=== PATIENT | female | born 1985 | race Caucasian/White ===

== ENCOUNTER 2016-12-09 06:56 | Emergency (ER) | payer SELFPAY ==
[~2016-12-09] VITALS: Ht 172.7 cm; Wt 133.0 kg
[~2016-12-09 06:56] MED LIST: ZITH250T PO
[2016-12-09 07:00] VITALS: BP 139/91; PULSE 86; RESP 18; TEMP 98; O2SAT 98
[2016-12-09 07:07] VITALS: BP 139/91; PULSE 86; RESP 16; TEMP 98; O2SAT 98
[2016-12-09] MEDS ORDERED: PRED50 PO (07:15)
[2016-12-09] MEDS ORDERED: CLOTR1%T TOPICAL (07:15)
--- NOTE | 2016-12-09 07:15 | PD ---
HPI Chief Complaint: Skin Problem Time Seen by Provider: 07:05 Travel History International Travel<30 days: No Contact w/Intl Traveler<30days: No Traveled to known affect area: No History of Present Illness HPI 31-year-old female here for evaluation of a rash. The patient reports that she joined a gym out 2-1/2 weeks ago. About 2 weeks ago she noticed a rash over her abdomen and lower back. Rash is pruritic. No fevers or chills. She thought that she may have ringworm and started to apply Lotrimin cream. She noticed an initial improvement, however the rash has not resolved. No intraoral lesions. PFSH Past Medical History Medical History: Denies Significant Hx Asthma: Yes Bipolar Disorder: Yes (PER PT A CHILD, PT ON NO MEDS) Depression: No Diabetes: No Diminished Hearing: No Immunizations Current: Yes Seizures: No Tetanus Vaccination: < 5 Years ?: Not : 4 Para: 1 Miscarriage: 1 : 1 Ectopic : Yes (L FALLOPIAN TUBE REMOVED) Tubal Ligation: Yes Past Surgical History Arteriovenous Shunt: No Gynecologic Surgery: Yes (FALLOPIAN TUBE REMOVAL) Oral Surgery: Yes (DENTAL ABSCESS) Social History Alcohol Use: No Tobacco Use: Yes (/2 ppd) Substance Use: No Allergies-Medications (Allergen,Severity, Reaction): Coded Allergies: No Known Allergies (Verified , 01/01/16) Reported Meds & Prescriptions Reported Meds & Active Scripts Active No Active Prescriptions or Reported Medications Review of Systems Except as stated in HPI: all other systems reviewed are Neg Physical Exam Narrative GENERAL: Pleasant, well-developed, well-nourished, no acute distress. SKIN: Warm and dry. Numerous circular/scaly lesions on anterior and posterior mid section about the size of a dime, no warmth or erythema. No petechiae. HEAD: Atraumatic. Normocephalic. EYES: Pupils equal and round. No scleral icterus. No injection or drainage. ENT: Mucous membranes pink and moist. No intraoral lesions. NECK: Trachea midline. No JVD. No nuchal rigidity. CARDIOVASCULAR: Regular rate and rhythm. RESPIRATORY: No accessory muscle use. Clear to auscultation. Breath sounds equal bilaterally. GASTROINTESTINAL: Abdomen soft, non-tender, nondistended. MUSCULOSKELETAL: No obvious deformities. No clubbing. No cyanosis. No edema. NEUROLOGICAL: Awake and alert. No obvious cranial nerve deficits. Motor grossly within normal limits. Normal speech. PSYCHIATRIC: Appropriate mood and affect; insight and judgment normal. Data Data Last Documented VS Vital Signs Date Time Temp Pulse Resp B/P Pulse Ox O2 Delivery O2 Flow Rate FiO2 12/09/16 07:07 98.0 86 16 139/91 98 MDM Medical Decision Making Medical Screen Exam Complete: Yes Emergency Medical Condition: Yes Medical Record Reviewed: Yes Differential Diagnosis Tenia corporis, insect bites, erythema multiforme, cellulitis unlikely, Long Deejay syndrome not likely, Narrative Course This is a 31-year-old female who is here for evaluation of a rash. There are numerous circular/scaly areas on the patient's mid section with raised borders. The appearance of the rash resembles tinea. There are no intraoral lesions. Plan is to start the patient on clotrimazole cream, steroids, and Benadryl. PMD /dermatology follow-up this week. She was informed on when to return to the emergency department. She verbalizes understanding and agreement with plan. Diagnosis Primary Impression: Rash Referrals: Data Processing Supervisor 3 days Primary Care Physician 3 days Patient Instructions: General Instructions Departure Forms: Tests/Procedures Additional Instructions: Take medications as prescribed. Follow-up with a primary care physician or roadmaster this week. Return to the emergency department if worsening symptoms or any other concerns. Scripts Prednisone 50 Mg Tab50 Mg PO DAILY 5 Days Ref 0 Prov:Douglas Brandon MD 12/09/16 Clotrimazole Topical 1% Soln1 Applic TOPICAL BID #30 ML Ref 2 Prov:Douglas Brandon MD 12/09/16 Disposition: 01 DISCHARGE HOME Condition: Stable Douglas Brandon MD Dec 09, 2016 07:15
== END 2016-12-09 07:23 | disposition home or self-care (01) ==
LOC: PHED 06:56
DX: R21 Rash and other nonspecific skin eruption (principal); F17.210 Nicotine dependence, cigarettes, uncomplicated
CPT/HCPCS: 99282

== ENCOUNTER 2018-01-23 16:55 | Emergency (ER) | payer SELFPAY ==
[~2018-01-23 16:55] MED LIST changes: +CLOTR1%T TOPICAL; +PRED50 PO; -ZITH250T PO
[2018-01-23 17:10] VITALS: BP 165/83; PULSE 102; RESP 18; TEMP 98.3; O2SAT 97
--- NOTE | 2018-01-23 17:11 | PD ---
HPI Chief Complaint: Chest Pain Time Seen by Provider: 17:00 Travel History International Travel<30 days: No Contact w/Intl Traveler<30days: No Traveled to known affect area: No History of Present Illness HPI 32-year-old female complains of chest pain. Patient states that the chest pain started a week ago. Patient states that the chest pain has been persistent since then. Patient states of chest pain is not associated with exertion. Patient denies any coughing and congestion fever chills. Patient states that the chest pains his pressure pain across the chest with radiation to left arm. Patient states that she has nausea but no vomiting diarrhea. Patient denies history of CAD. Patient states that she was told that she had elevated blood pressure in the past however not on medication. Patient denies history of diabetes or hyperlipidemia. Patient states that she feel numbness of the feet and blurred vision intermittently for the past week. Patient states that she was having tachycardia for the past week or so. Patient has history of anxiety in the past. PFSH Past Medical History Asthma: Yes Bipolar Disorder: Yes (PER PT A CHILD, PT ON NO MEDS) Depression: No Diabetes: No Diminished Hearing: No Immunizations Current: Yes Seizures: No : 4 Para: 1 Miscarriage: 1 : 1 Ectopic : Yes (L FALLOPIAN TUBE REMOVED) Tubal Ligation: Yes Past Surgical History Arteriovenous Shunt: No Gynecologic Surgery: Yes (FALLOPIAN TUBE REMOVAL) Oral Surgery: Yes (DENTAL ABSCESS) Social History Alcohol Use: No Tobacco Use: Yes (/2 ppd) Substance Use: No Allergies-Medications (Allergen,Severity, Reaction): Coded Allergies: No Known Allergies (Verified , 01/01/16) Reported Meds & Prescriptions Reported Meds & Active Scripts Active Review of Systems General / Constitutional: No: Fever Eyes: No: Visual changes HENT: No: Headaches Cardiovascular: Positive: Chest Pain or Discomfort, Tachycardia Respiratory: No: Shortness of Breath Gastrointestinal: No: Abdominal Pain Genitourinary: No: Dysuria Musculoskeletal: No: Pain Skin: No Rash Neurologic: No: Weakness Psychiatric: No: Depression Endocrine: No: Polydipsia Hematologic/Lymphatic: No: Easy Bruising Physical Exam Narrative GENERAL: Well-nourished, well-developed patient. SKIN: Focused skin assessment warm/dry. HEAD: Normocephalic. EYES: No scleral icterus. No injection or drainage. NECK: Supple, trachea midline. No JVD or lymphadenopathy. CARDIOVASCULAR: Regular rate and rhythm without murmurs, gallops, or rubs. RESPIRATORY: Breath sounds equal bilaterally. No accessory muscle use. GASTROINTESTINAL: Abdomen soft, non-tender, nondistended. MUSCULOSKELETAL: No cyanosis, or edema. BACK: Nontender without obvious deformity. No CVA tenderness. Neurologic exam normal. Data Data Last Documented VS Vital Signs Date Time Temp Pulse Resp B/P (MAP) Pulse Ox O2 Delivery O2 Flow Rate FiO2 01/23/18 17:25 98 Room Air 01/23/18 17:10 98.3 102 18 165/83 (110) Orders Orders Electrocardiogram (01/23/18 17:06) Complete Blood Count With Diff (01/23/18 17:) Comprehensive Metabolic Panel (01/23/18 17:06) Creatine Kinase (Cpk) (01/23/18 17:06) Troponin I (01/23/18 17:06) Prothrombin Time / Inr (Pt) (01/23/18 17:) Act Partial Throm Time (Ptt) (01/23/18 17:06) Thyroid Stimulating Hormone (01/23/18 17:06) Chest, Single Ap (01/23/18 17:06) Iv Access Insert/Monitor (01/23/18 17:06) Ecg Monitoring (01/23/18 17:06) Oximetry (01/23/18 17:06) Labs Laboratory Tests Test 01/23/18 17:26 01/23/18 17:27 Prothrombin Time 11.0 SEC Prothromb Time International Ratio 1.1 RATIO Activated Partial Thromboplast Time 30.3 SEC White Blood Count 8.0 TH/MM3 Red Blood Count 4.60 MIL/MM3 Hemoglobin 13.5 GM/DL Hematocrit 40.2 % Mean Corpuscular Volume 87.4 FL Mean Corpuscular Hemoglobin 29.3 PG Mean Corpuscular Hemoglobin Concent 33.5 % Red Cell Distribution Width 14.0 % Platelet Count 265 TH/MM3 Mean Platelet Volume 7.5 FL Neutrophils (%) (Auto) 66.8 % Lymphocytes (%) (Auto) 19.4 % Monocytes (%) (Auto) 10.8 % Eosinophils (%) (Auto) 2.4 % Basophils (%) (Auto) 0.6 % Neutrophils # (Auto) 5.4 TH/MM3 Lymphocytes # (Auto) 1.5 TH/MM3 Monocytes # (Auto) 0.9 TH/MM3 Eosinophils # (Auto) 0.2 TH/MM3 Basophils # (Auto) 0.0 TH/MM3 CBC Comment DIFF FINAL Differential Comment Blood Urea Nitrogen 10 MG/DL Creatinine 0.68 MG/DL Random Glucose 98 MG/DL Total Protein 7.2 GM/DL Albumin 3.2 GM/DL Calcium Level 8.2 MG/DL Alkaline Phosphatase 97 U/L Aspartate Amino Transf (AST/SGOT) 13 U/L Alanine Aminotransferase (ALT/SGPT) 24 U/L Total Bilirubin 0.1 MG/DL Sodium Level 139 MEQ/L Potassium Level 3.8 MEQ/L Chloride Level 105 MEQ/L Carbon Dioxide Level 28.5 MEQ/L Anion Gap 6 MEQ/L Estimat Glomerular Filtration Rate 100 ML/MIN Total Creatine Kinase 68 U/L Troponin I LESS THAN 0.02 NG/ML Thyroid Stimulating Hormone 3rd Gen 0.942 uIU/ML MDM Medical Decision Making Medical Screen Exam Complete: Yes Emergency Medical Condition: Yes Interpretation(s) 17 11 PM. EKG shows sinus rhythm nonspecific ST-T wave changes. Last Impressions Chest X-Ray 01/23/18 1706 Signed Impressions: Service Date/Time: Tuesday, January 23, 2018 17:40 - CONCLUSION: No evidence of acute cardiopulmonary disease. Barry Aviles MD 18 11 PM. CBC within normal limits. CMP within normal limits. Cardiac enzymes are normal. TSH normal. Differential Diagnosis Differential diagnosis including anxiety, musculoskeletal, angina, RI, PE, pneumothorax. Narrative Course 32-year-old female with numbness of the feet, blurred vision, tachycardia, chest pressure, nausea. Diagnosis Primary Impression: Atypical chest pain Patient Instructions: General Instructions Additional Instructions: Advised patient to follow with local physician for blood pressure check. Return if increasing chest pain shortness of breath. Med/Other Pt SpecificInfo: No Meds Exist/No RX given Disposition: 01 DISCHARGE HOME Condition: Stable Abner Garcia MD Jan 23, 2018 17:11
[2018-01-23 17:25] VITALS: O2SAT 98
[2018-01-23 17:30] LABS: AUTOMATED NEUTROPHIL # 5.4 TH/MM3 (1.8-7.7); BASOPHIL % 0.6 % (0.0-2.0); EOSINOPHIL # 0.2 TH/MM3 (0-0.4); EOSINOPHIL % 2.4 % (0.0-4.0); HEMATOCRIT 40.2 % (35.0-46.0); HEMOGLOBIN 13.5 GM/DL (11.6-15.3); LYMPH % 19.4 % (9.0-44.0); LYMPHOCYTE # 1.5 TH/MM3 (1.0-4.8); MEAN CELL VOLUME 87.4 FL (80.0-100.0); MEAN CORPUSCULAR HEMOGLOBIN 29.3 PG (27.0-34.0); MEAN CORPUSCULAR HGB CONC 33.5 % (32.0-36.0); MEAN PLATELET VOLUME 7.5 FL (7.0-11.0); MONO % 10.8 % (0.0-8.0); MONOCYTE # 0.9 TH/MM3 (0-0.9); NEUT % 66.8 % (16.0-70.0); PLATELET COUNT 265 TH/MM3 (150-450)
[2018-01-23 17:40] LABS: CHLORIDE 105 MEQ/L (98-107); SODIUM (NA) 139 MEQ/L (136-145)
[2018-01-23 17:43] LABS: CALCIUM 8.2 MG/DL (8.5-10.1)
[2018-01-23 17:44] LABS: ALBUMIN 3.2 GM/DL (3.4-5.0); BICARBONATE 28.5 MEQ/L (21.0-32.0); BLOOD UREA NITROGEN 10 MG/DL (7-18); GLUCOSE,RANDOM 98 MG/DL (74-106)
[2018-01-23 17:44] LABS: INTERNATIONAL NORMALIZED RATIO 1.1 RATIO
[2018-01-23 17:47] LABS: ALT (GPT) 24 U/L (10-53); AST (GOT) 13 U/L (15-37); CREATININE 0.68 MG/DL (0.50-1.00); GLOMERULAR FILTRATION RATE 100 ML/MIN (>89)
[2018-01-23 17:49] LABS: TOTAL BILIRUBIN ADULT 0.1 MG/DL (0.2-1.0); TOTAL PROTEIN 7.2 GM/DL (6.4-8.2)
[2018-01-23 17:50] LABS: ALKALINE PHOSPHATASE 97 U/L (45-117)
[2018-01-23 17:52] LABS: TROPONIN I LESS THAN 0.02 NG/ML (0.02-0.05)
[2018-01-23 18:00] VITALS: BP 155/70; PULSE 98; RESP 18; O2SAT 98
--- NOTE | 2018-01-23 18:01 | RADRPT ---
EXAM DATE/TIME: 01/23/2018 17:40 [facility] COMPARISON: No previous studies available for comparison. INDICATIONS : Chest pain. MEDICAL HISTORY : None. SURGICAL HISTORY : None. ENCOUNTER: Initial ACUITY: 1 day PAIN SCORE: 4/10 LOCATION: Bilateral chest FINDINGS: A single view of the chest demonstrates the lungs to be symmetrically aerated without evidence of mas s, infiltrate or effusion. The cardiomediastinal contours are unremarkable. Osseous structures are intact. CONCLUSION: No evidence of acute cardiopulmonary disease. Barry Aviles MD on January 23, 2018 at 17:59 Board Certified Radiologist. This report was verified electronically.
[2018-01-23 18:40] VITALS: BP 149/78
--- NOTE | 2018-01-24 20:12 | EKG ---
Date Performed: 01/23/2018 Time Performed: 16:59:10 PTAGE: 32 years EKG: SINUS TACHYCARDIA ABNORMAL RHYTHM ECG NO PREVIOUS TRACING DOCTOR: Carrie Rowland Interpretating Date/Time 01/24/2018 20:10:54
== END 2018-01-23 18:41 | disposition home or self-care (01) ==
LOC: PHED 16:55
DX: R07.89 Other chest pain (principal); R00.0 Tachycardia, unspecified; J45.909 Unspecified asthma, uncomplicated; F17.210 Nicotine dependence, cigarettes, uncomplicated
CPT/HCPCS: 71045; 80053; 82550; 84443; 84484; 85025; 85610; 85730; 93005; 99285

== ENCOUNTER 2018-01-25 09:08 | Emergency (ER) | payer SELFPAY ==
[~2018-01-25] VITALS: Ht 172.7 cm; Wt 126.5 kg
[2018-01-25 09:14] VITALS: BP 153/81; PULSE 99; RESP 16; TEMP 98.3; O2SAT 96
[2018-01-25] MEDS ORDERED: VENTAER INH ×2 (09:36→10:34)
--- NOTE | 2018-01-25 10:36 | PD ---
HPI . Cough and congestion Chief Complaint: Cold / Flu Symptoms Time Seen by Provider: 09:46 Travel History International Travel<30 days: No Contact w/Intl Traveler<30days: No Traveled to known affect area: No History of Present Illness HPI Patient presents with a chief complaint of cough, congestion, wheezing and sore throat for the last 3 days. She admits that she is a smoker. She also states that she has a history of wheezing but is out of her inhaler. She states that she has been trying to treat her symptoms with hot showers and [id number] cold medicines with no relief. Associated symptoms include clear mucus production and subjective fevers and chills. PFSH Past Medical History Asthma: Yes Bipolar Disorder: Yes (PER PT A CHILD, PT ON NO MEDS) Depression: No Diabetes: No Diminished Hearing: No Immunizations Current: Yes Seizures: No Tetanus Vaccination: < 5 Years Influenza Vaccination: No ?: Not LMP: 2.5 WEEKS : 4 Para: 1 Miscarriage: 1 : 1 Ectopic : Yes (L FALLOPIAN TUBE REMOVED) Tubal Ligation: Yes Past Surgical History Arteriovenous Shunt: No Gynecologic Surgery: Yes (FALLOPIAN TUBE REMOVAL) Oral Surgery: Yes (DENTAL ABSCESS) Social History Alcohol Use: No Tobacco Use: Yes (states 5 cigs a day) Substance Use: No Allergies-Medications (Allergen,Severity, Reaction): Coded Allergies: No Known Allergies (Verified Adverse Reaction, Unknown, 01/25/18) Reported Meds & Prescriptions Reported Meds & Active Scripts Active Reported Ventolin Hfa 18 GM Inh (Albuterol Sulfate) 90 Mcg/Act Aer 2 Puff INH Q4-6H PRN Review of Systems Except as stated in HPI: all other systems reviewed are Neg General / Constitutional: Positive: Fever, Chills HENT: Positive: Congestion Respiratory: Positive: Cough, Wheezing Physical Exam Narrative GENERAL: Awake and alert and in no acute distress. SKIN: warm/dry. Normal color and turgor. HEAD: Normocephalic. Atraumatic. EYES: Pupils equal and round. No scleral icterus. No injection or drainage. ENT: No nasal bleeding or discharge. Mucous membranes pink and moist. NECK: Trachea midline. Full range of motion without pain.. CARDIOVASCULAR: Regular rate and rhythm. Heart sounds normal. RESPIRATORY: No accessory muscle use. Good air movement. Faint expiratory wheezing which is heard loudest anteriorly over the trachea. Breath sounds equal bilaterally. Distally MUSCULOSKELETAL: No obvious deformities. NEUROLOGICAL: Awake and alert. No obvious cranial nerve deficits. Motor grossly within normal limits. Normal speech. PSYCHIATRIC: Appropriate mood and affect; insight and judgment normal. Data Data Last Documented VS Vital Signs Date Time Temp Pulse Resp B/P (MAP) Pulse Ox O2 Delivery O2 Flow Rate FiO2 01/25/18 09:32 90 16 97 Room Air 01/25/18 09:14 98.3 153/81 (105) [facility] Medical Decision Making Medical Screen Exam Complete: Yes Emergency Medical Condition: Yes Medical Record Reviewed: Yes (patient was seen here on 01/23 for chest pain.) Differential Diagnosis My differential diagnosis includes but is not limited to asthma, COPD, bronchitis, pneumonia, CHF Narrative Course This patient presents with cough, congestion and wheezing. She has a history of asthma and is out of her MDI. She is also a smoker. Vital Signs Date Time Temp Pulse Resp B/P (MAP) Pulse Ox O2 Delivery O2 Flow Rate FiO2 01/25/18 09:32 90 16 97 Room Air 01/25/18 09:14 98.3 99 16 153/81 (105) 96 She is in no respiratory distress. She will be discharged to home with a prescription for an MDI. Diagnosis Primary Impression: Asthma Qualified Codes: J45.21 - Mild intermittent asthma with (acute) exacerbation Patient Instructions: Asthma (DC), General Instructions Additional Instructions: I recommend the use of a Neti Pot. You may use a nasal spray such as Afrin for up to 3 days as needed for nasal congestion. You may take an njmy-ldr-poyppwu antihistamine such as Zyrtec, Danielle or Claritin as needed for runny secretions. You may take pseudoephedrine as needed for congestion. You will need to sign for this at the pharmacy. You may take plain Mucinex, 1200 mg twice a day as needed for thick secretions. You may take a cough syrup such as Delsym as needed for cough. Motrin as needed for fever and body aches. Throat lozenges/sprays as needed for sore throat. Warm salt water gargles for sore throat. Hot tea with lemon and honey also helps soothe a sore throat. Med/Other Pt SpecificInfo: Prescription(s) given Scripts Albuterol 18 GM Inh (Ventolin Hfa 18 GM Inh) 90 Mcg/Act Aer 2 PUFF INH Q4-6H Y for SHORTNESS OF BREATH, #1 INHALER 0 Refills Prov: Irais De Jesus MD 01/25/18 Disposition: 01 DISCHARGE HOME Condition: Stable Irais De Jesus MD Jan 25, 2018 10:36
== END 2018-01-25 10:43 | disposition home or self-care (01) ==
LOC: PHED 09:08
DX: J45.21 Mild intermittent asthma with (acute) exacerbation (principal); F17.210 Nicotine dependence, cigarettes, uncomplicated
CPT/HCPCS: 99283